=== PATIENT | male | born 1975 | race American Indian/Alaskan Native ===

== ENCOUNTER 2017-01-05 23:35 | Emergency (ER) | payer MEDICAID ==
[~2017-01-05] VITALS: Ht 175.3 cm; Wt 170.0 kg
[2017-01-06] MEDS ORDERED: ZIPRASIDONE 20 MG INJ IM ONE ×2 (02:25→02:30)
[2017-01-06 09:43] VITALS: BP 126/69
== END 2017-01-06 09:47 | disposition home or self-care (01) ==
LOC: ED 01-06 09:32
DX: F10.120 Alcohol abuse with intoxication, uncomplicated (principal)
CPT/HCPCS: 99283